=== PATIENT | male | born 1965 | race Two or more races ===

== ENCOUNTER 2022-03-22 13:36 | Inpatient (IN) | payer SELFPAY ==
[2022-03-22] MEDS ORDERED: LACTATED RINGERS SOLUTION 1,000 ML/1,000 ML INFUS.BAG IV STA (15:45)
[2022-03-22] MEDS ORDERED: THIAMINE HCL 200 MG/2 ML VIAL IVPB ONE (15:46)
[2022-03-22] MEDS ORDERED: FOLIC ACID 1 MG TABLET (FP) PO ONE (15:46)
[2022-03-22] MEDS ORDERED: ONDANSETRON 4 MG/2 ML VIAL IVPUSH ONE (16:24)
[2022-03-22] MEDS ORDERED: ONDANSETRON 4 MG/2 ML VIAL ONE (16:28)
[2022-03-22] MEDS ORDERED: THIAMINE HCL 200 MG/2 ML VIAL ONE (16:28)
[2022-03-22] MEDS ORDERED: FOLIC ACID 1 MG TABLET (FP) ONE (16:49)
[2022-03-22 17:00] LABS: EOS % 0.1 % (0-4.5); HEMATOCRIT 45.2 % (35.4-49); LYMPH % 26.8 % (8-40); MCH 29.2 pg (25.7-33.7); MCHC 33.2 g/dl (32.0-35.9); MEAN CELL VOLUME 87.9 fl (80-96); MEAN PLT VOLUME 8.5 fl (7.5-11.1); MONO % 4.9 % (3.8-10.2); NEUT % 67.2 % (42.8-82.8); PLATELET COUNT 158 10^3/uL (134-434); RBC 5.14 M/mm3 (4.00-5.60); RDW 14.1 % (11.9-15.9); WHITE BLOOD COUNT 5.8 K/mm3 (4.0-10.0)
[2022-03-22 17:07] LABS: INR 0.97 (0.83-1.09); PROTHROMBIN TIME (PATIENT) 11.2 SEC (9.7-13.0)
[2022-03-22] MEDS ORDERED: LORazepam 2 MG/ML SDV VIAL IVPUSH ONE (17:09)
[2022-03-22 17:16] LABS: CALCIUM 8.8 mg/dL (8.5-10.1)
[2022-03-22 17:17] LABS: ALBUMIN 3.7 g/dl (3.4-5.0); BLOOD UREA NITROGEN 17.6 mg/dL (7-18)
[2022-03-22 17:21] LABS: BILIRUBIN,TOTAL 0.6 mg/dL (0.2-1)
[2022-03-22 17:30] LABS: METHADONE, UR NEGATIVE (NEGATIVE); OPIATES, URI NEGATIVE (NEGATIVE); URINE AMPHETAMINES NEGATIVE (NEGATIVE)
[2022-03-22 17:31] LABS: EPI CELLS 5 /uL (0-25.1); HYALINE CASTS 2 /uL (0-3.1); PHENCYCLIDINE,URINE NEGATIVE (NEGATIVE); URINE APPEARANCE CLEAR; URINE BACTERIA 15 /uL (0-1359); URINE BILIRUBIN NEGATIVE (NEGATIVE); URINE COLOR YELLOW; URINE GLUCOSE (UA) NEGATIVE (NEGATIVE); URINE KETONE 1+ (NEGATIVE); URINE LEUK ESTERASE NEGATIVE (NEGATIVE); URINE NITRITE NEGATIVE (NEGATIVE); URINE PROTEIN 3+ (NEGATIVE); URINE RBC 24 /uL (0-23.9); URINE UROBILINOGEN 0.2 mg/dL (0.2-1.0); URINE WBC 4 /uL (0-25.8)
[2022-03-22 17:33] LABS: COCAINE, UR NEGATIVE (NEGATIVE); URINE BARBITURATES NEGATIVE (NEGATIVE); URINE BENZODIAZEPINES NEGATIVE (NEGATIVE)
[2022-03-23] MEDS ORDERED: LORazepam 2 MG/ML SDV VIAL IVPUSH ONE (00:53)
[2022-03-23] MEDS ORDERED: SODIUM CHLORIDE 500 ML IV STA (00:55)
[2022-03-23] MEDS ORDERED: ONDANSETRON 4 MG/2 ML VIAL ONE (01:05)
[2022-03-23] MEDS ORDERED: ONDANSETRON 4 MG/2 ML VIAL IVPUSH ONE (01:21)
[2022-03-23] MEDS ORDERED: chlordiazePOXIDE HCL 25 MG CAPSULE PO PRN (01:27)
[2022-03-23] MEDS ORDERED: FOLIC ACID INJECTION - 1 MG, THIAMINE HCL 200 MG, MULTIVIT INJECTION ADULT 10 ML in SOD... IVPB ONE (01:43)
[2022-03-23] MEDS ORDERED: chlordiazePOXIDE HCL 25 MG CAPSULE ONE ×2 (05:03→10:58)
[2022-03-23] MEDS: chlordiazePOXIDE HCL 25 MG CAPSULE PO SCH ×4 (05:13→22:14)
[2022-03-23] MEDS ORDERED: THIAMINE HCL 100 MG TABLET (FP) ONE ×2 (06:36→14:09)
[2022-03-23] MEDS: THIAMINE HCL 100 MG TABLET (FP) PO SCH ×3 (06:43→22:13)
[2022-03-23] MEDS ORDERED: diazePAM CARPU-JECT 10 MG/2 ML DISP.SYRIN IVPUSH ONE (06:46)
[2022-03-23] MEDS ORDERED: diazePAM CARPU-JECT 10 MG/2 ML DISP.SYRIN ONE (06:47)
[2022-03-23] MEDS: DEXTROSE 5%-LACTATED RINGERS 1,000 ML IV SCH (07:30)
[2022-03-23 07:31] LABS: MAGNESIUM 2.2 mg/dL (1.8-2.4)
[2022-03-23] MEDS ORDERED: ENOXAPARIN NA (PORCINE) 40 MG/0.4 ML DISP.SYRIN SQ ONE (09:06)
[2022-03-23] MEDS ORDERED: ENOXAPARIN NA (PORCINE) 40 MG/0.4 ML DISP.SYRIN SQ SCH (10:00)
[2022-03-23] MEDS ORDERED: PANTOPRAZOLE SODIUM 40 MG in SODIUM CHLORIDE 100 ML IVPB SCH (10:00)
[2022-03-23] MEDS ORDERED: PANTOPRAZOLE SODIUM 40 MG VIAL ONE (10:20)
[2022-03-23 15:30] VITALS: BMI 30.4
[2022-03-23] MEDS: PANTOPRAZOLE SODIUM 40 MG in SODIUM CHLORIDE 100 ML IVPB SCH (22:13)
[2022-03-24] MEDS ORDERED: ACETAMINOPHEN 325 MG TABLET (FP) PO PRN (04:34)
[2022-03-24] MEDS: THIAMINE HCL 100 MG TABLET (FP) PO SCH ×3 (05:12→21:59)
[2022-03-24] MEDS: chlordiazePOXIDE HCL 25 MG CAPSULE PO SCH ×4 (05:13→22:00)
[2022-03-24] MEDS: ACETAMINOPHEN 325 MG TABLET (FP) PO PRN ×2 (05:14→10:45)
[2022-03-24] MEDS: DEXTROSE 5%-LACTATED RINGERS 1,000 ML IV SCH (06:27)
[2022-03-24 08:45] LABS: BASO % 0.6 % (0-2.0); EOS % 2.3 % (0-4.5); HEMATOCRIT 37.1 % (35.4-49); HEMOGLOBIN 12.4 GM/dL (11.7-16.9); LYMPH % 19.4 % (8-40); MCH 29.5 pg (25.7-33.7); MCHC 33.4 g/dl (32.0-35.9); MEAN CELL VOLUME 88.2 fl (80-96); MEAN PLT VOLUME 8.8 fl (7.5-11.1); MONO % 5.2 % (3.8-10.2); NEUT % 72.5 % (42.8-82.8); PLATELET COUNT 94 10^3/uL (134-434); RDW 14.2 % (11.9-15.9)
[2022-03-24 09:00] LABS: CALCIUM 8.9 mg/dL (8.5-10.1)
[2022-03-24 09:02] LABS: MAGNESIUM 1.6 mg/dL (1.8-2.4)
[2022-03-24 09:03] LABS: BLOOD UREA NITROGEN 7.2 mg/dL (7-18)
[2022-03-24 09:04] LABS: CREATININE 0.9 mg/dL (0.55-1.3); TOT PROT 5.8 g/dl (6.4-8.2)
[2022-03-24 09:06] LABS: PHOSPHOROUS 1.9 mg/dL (2.5-4.9)
[2022-03-24 09:08] LABS: BILIRUBIN,TOTAL 1.2 mg/dL (0.2-1)
[2022-03-24] MEDS: PANTOPRAZOLE SODIUM 40 MG in SODIUM CHLORIDE 100 ML IVPB SCH (09:20)
[2022-03-24] MEDS ORDERED: MAGNESIUM SULF 50% (8.12 MEQ/2 ML-1 GM VIAL) IVPB ONE (13:52)
[2022-03-24] MEDS ORDERED: POTASSIUM CHLORIDE TABS 20 MEQ TABLET.ER (FP) PO ONE (13:53)
[2022-03-24] MEDS ORDERED: NAPH,MB-DB/K PH,MBDB POWDER PACKET PO ONE (13:53)
[2022-03-24] MEDS ORDERED: KCL 10 MEQ IVPB 10 MEQ/100 ML INFUS.BAG IVPB SCH (14:00)
[2022-03-24] MEDS ORDERED: LORazepam 1 MG TABLET PO ONE (18:02)
[2022-03-24] MEDS: PANTOPRAZOLE 40 MG TABLET PO SCH (22:00)
[2022-03-25] MEDS ORDERED: chlordiazePOXIDE HCL 10 MG CAPSULE PO PRN
[2022-03-25] MEDS: chlordiazePOXIDE HCL 10 MG CAPSULE PO SCH ×2 (04:38→11:04)
[2022-03-25] MEDS: THIAMINE HCL 100 MG TABLET (FP) PO SCH ×2 (05:20→13:50)
[2022-03-25 07:12] VITALS: TEMP 98.9
[2022-03-25] MEDS: PANTOPRAZOLE 40 MG TABLET PO SCH (09:21)
[2022-03-25] MEDS: DEXTROSE 5%-LACTATED RINGERS 1,000 ML IV SCH (09:22)
[2022-03-25] MEDS ORDERED: LORazepam 1 MG TABLET PO ONE (14:47)
[2022-03-25 15:30] VITALS: BP 121/69; PULSE 232; RESP 20
[2022-03-26] MEDS ORDERED: chlordiazePOXIDE HCL 10 MG CAPSULE PO SCH (05:00)
[2022-03-27] MEDS ORDERED: chlordiazePOXIDE HCL 10 MG CAPSULE PO ONE (05:00)
== END 2022-03-25 16:30 | disposition other institution (70) | DRG 775 ==
LOC: JER 13:36 → JERBED 20:51 → OBSVTOIN 03-23 01:22 → J4W 03-23 14:56
PROVIDERS: ADMIT Internal Medicine; ATTEND Internal Medicine
PROC: HZ2ZZZZ Detoxification Services for Substance Abuse Treatment (ICD-10-PCS; principal; 2022-03-23)
DX: F10.229 Alcohol dependence with intoxication, unspecified (principal); I10 Essential (primary) hypertension; F10.230 Alcohol dependence with withdrawal, uncomplicated; K70.9 Alcoholic liver disease, unspecified; K29.20 Alcoholic gastritis without bleeding; K92.0 Hematemesis; F32.A Depression, unspecified; R00.0 Tachycardia, unspecified
CPT/HCPCS: 36415; 70450-TC; 71045-TC-FY; 73562-TC-LT-FY; 80053; 80061; 80307; 81003; 82962; 83690; 83735; 84100; 84484; 85025; 85610; 93005; 93010; 99285-25; C9803-CS; G0378; U0003; U0005